=== PATIENT | male | born 1955 | race Caucasian/White ===

== ENCOUNTER → 2019-08-23 | Outpatient (CLI) | payer MEDICARE, OTHER ==
[~2019-08-23] MED LIST: ASPI-624 PO; CEPH500C PO; HAWT565C PO; HYDR-3454 PO; LORA10TA7 PO; MULT9LIQ6 PO; MUPI22OI TP; OMEG1CAP51 PO
--- NOTE | 2019-08-23 11:22 | Diagnostic Imaging Report ---
PROCEDURE: CT sinuses without contrast TECHNIQUE: Multiple contiguous axial images were obtained through the sinuses without the use of intravenous contrast. Coronal and sagittal reformations were then performed. Auto Exposure Controls were utilized during the CT exam to meet ALARA standards for radiation dose reduction. DATE: August 23, 2019. INDICATION: 64-year-old male, history of nasal polyps. Worsening symptoms per patient. COMPARISON: None available. FINDINGS: There is dependent opacification in the right frontal sinus with areas of bubbly internal lucency. There is complete opacification of the left frontal sinus and essentially complete opacification of the ethmoidal air cells bilaterally. There is very near complete opacification of the bilateral sphenoid sinuses. There is prominent right maxillary sinus mucosal thickening. There is complete opacification of the left maxillary sinus. There are areas of high internal attenuation within the central aspect of the left maxillary sinus as well as dependently. There is complete opacification of both ostiomeatal units. There is complete opacification of both sphenoethmoidal recesses. There is no aggressive bone destruction. The bony nasal septum does deviate to the left of midline. The middle ears and mastoid air cells are well aerated bilaterally. IMPRESSION: 1. Nonspecific extensive opacification within the paranasal sinuses with dependent areas of opacification in the right frontal sinus as well as bubbly areas of internal lucency. This does raise concern for acute sinusitis. Recommend correlation clinically. 2. There are areas of high attenuation in the left maxillary sinus. This is not specific although fungal etiology would be considered. 3. No aggressive bone destruction. Dictated by: Dictated on workstation # [id number]
== END ==
LOC: RAD FS 10:06
PROVIDERS: ATTEND Otolaryngology Otolaryngology/Facial Plastic Surgery
DX: J33.9 Nasal polyp, unspecified (principal)
CPT/HCPCS: 70486

== ENCOUNTER 2020-06-13 05:34 | Outpatient (RCR) | payer MEDICARE, OTHER ==
[~2020-06-13] VITALS: Ht 182.9 cm; Wt 84.9 kg
[2020-06-13 09:43] VITALS: BP 156/86
[2020-06-13 10:12] LABS: BASOPHILS % (AUTO) 0 % (0-10); EOSINOPHILS % (AUTO) 0 % (0-10); HEMATOCRIT 45 % (40-54); HEMOGLOBIN 15.2 g/dL (13.3-17.7); LYMPHOCYTES # (AUTO) 1.2 10^3/uL (1.0-4.0); LYMPHOCYTES % (AUTO) 12 % (12-44); MEAN CORPUSCULAR HEMOGLOBIN 31 pg (25-34); MEAN CORPUSCULAR HGB CONC 34 g/dL (32-36); MEAN CORPUSCULAR VOLUME 93 fL (80-99); MEAN PLATELET VOLUME 11.3 fL (9.0-12.2); MONOCYTES # (AUTO) 0.7 10^3/uL (0.0-1.0); MONOCYTES % (AUTO) 7 % (0-12); NEUTROPHILS # (AUTO) 7.9 10^3/uL (1.8-7.8); NEUTROPHILS % (AUTO) 80 % (42-75); PLATELET COUNT 182 10^3/uL (130-400); WHITE BLOOD COUNT 9.9 10^3/uL (4.3-11.0)
[2020-06-13 10:26] LABS: CHLORIDE 102 MMOL/L (98-107); POTASSIUM 3.9 MMOL/L (3.6-5.0); SODIUM 137 MMOL/L (135-145)
[2020-06-13 10:27] LABS: CALCIUM 9.4 MG/DL (8.5-10.1)
[2020-06-13 10:28] LABS: GLUCOSE 91 MG/DL (70-105)
[2020-06-13 10:29] LABS: CARBON DIOXIDE 27 MMOL/L (21-32)
[2020-06-13 10:32] LABS: CREATININE SERUM 1.02 MG/DL (0.60-1.30); GFR ESTIMATED > 60
[2020-06-13 10:33] LABS: BUN/CREATININE RATIO 25
[2020-06-13] MEDS ORDERED: ASPI-999 PO (11:18)
[2020-06-13] MEDS ORDERED: LOSA100T57 PO (11:49)
[2020-06-13] MEDS ORDERED: ATOR10TA PO (11:49)
[2020-06-13] MEDS ORDERED: ZINC50TA11 PO (11:49)
[2020-06-13] MEDS ORDERED: HYDR25TA4 PO (11:49)
[2020-06-13] MEDS ORDERED: FLUT9.9S NSEACH (11:49)
[2020-06-13] MEDS ORDERED: CHOL10002 PO (11:49)
[2020-06-13] MEDS ORDERED: MTP25TSR PO (11:49)
[2020-06-13] MEDS ORDERED: LEVO5TAB28 PO (11:49)
== END 2020-06-13 11:52 | disposition home or self-care (01) ==
LOC: PREOP 05:34
PROVIDERS: ATTEND Otolaryngology Otolaryngology/Facial Plastic Surgery
DX: Z01.818 Encounter for other preprocedural examination (principal); J32.9 Chronic sinusitis, unspecified; J34.3 Hypertrophy of nasal turbinates; J33.9 Nasal polyp, unspecified; Z20.822 Contact with and (suspected) exposure to COVID-19
CPT/HCPCS: 80048; 85025; 87081; 93005; U0002; 36415; 87635

== ENCOUNTER 2020-06-15 07:33 | Day surgery (SDC) | payer MEDICARE, OTHER ==
[~2020-06-15] VITALS: Ht 182.9 cm; Wt 84.9 kg
[2020-06-15] VITALS (14 sets, daily range): BP systolic 145–182; BP diastolic 87–115
[~2020-06-15 07:33] MED LIST changes: +ASPI-999 PO; +ATOR10TA PO; +CHOL-34 PO; +FLUT9.9S NSEACH; +HYDR25TA4 PO; +LEVO5TAB28 PO; +LOSA100T57 PO; +MTP25TSR PO; +ZINC50TA11 PO
[2020-06-15] MEDS ORDERED: LACTATED RINGERS 1,000 ML IV PRN (07:45)
[2020-06-15] MEDS ORDERED: HYDROCORTISONE 100 MG/2 ML (Solu-CORTEF) VIAL IV ONE ×2 (07:45→08:30)
[2020-06-15] MEDS ORDERED: AMPICILLIN/SULBACTAM INJECTION 1.5 GM in NS (IVPB) 100 ML IV ONE ×2 (07:45→08:30)
[2020-06-15] MEDS: LACTATED RINGERS 1,000 ML IV PRN ×2 (07:52→09:27)
[2020-06-15] MEDS ORDERED: BSS 15 ML ONE (07:53)
[2020-06-15] MEDS ORDERED: PHENYLEPHRINE 0.5% NASAL SPR (NEO-SYNEPHRINE) REG ONE (07:53)
[2020-06-15] MEDS ORDERED: COCAINE HCL 4% 2 ML SYR ONE (07:53)
[2020-06-15] MEDS ORDERED: LIDOCAINE/EPI 1%-1:200,000 (XYLOCAINE) 10 ML VIAL ONE (07:54)
[2020-06-15] MEDS ORDERED: HYDROCORTISONE 100 MG/2 ML (Solu-CORTEF) VIAL ONE (07:55)
--- NOTE | 2020-06-15 07:57 | Progress Note-Pre Operative ---
Pre-Operative Progress Note H&P Reviewed The H&P was reviewed, patient examined and no changes noted. Date Seen by Provider: Jun 15, 2020 Time Seen by Provider: 07:45 Date H&P Reviewed: Jun 15, 2020 Time H&P Reviewed: 07:45 Pre-Operative Diagnosis: Bilat Chronic Sinusitis, Deviated SEptum, Bilat Hyepr of Inf Turbs REGULO BIRMINGHAM MD Jun 15, 2020 07:57
[2020-06-15] MEDS ORDERED: proPOfol 200 MG/20 ML (DIPRIVAN) VIAL IV ONE (08:02)
[2020-06-15] MEDS ORDERED: LIDOCAINE PF 2% 5 ML (XYLOCAINE) VIAL ONE (08:02)
[2020-06-15] MEDS ORDERED: ONDANSETRON 4 MG/2 ML (SDV) Z0FRAN ONE (08:02)
[2020-06-15] MEDS ORDERED: ROCURONIUM 10 MG/ML 5 ML SYRINGE IV ONE (08:02)
[2020-06-15] MEDS ORDERED: MIDAZOLAM 2 MG/2 ML (VERSED) VIAL ONE (08:02)
[2020-06-15] MEDS ORDERED: fentaNYL INJECTION 100 MCG/2 ML AMP ONE (08:02)
[2020-06-15] MEDS ORDERED: NEOSTIGMINE 3 MG/3 ML VIAL ONE (08:05)
[2020-06-15] MEDS ORDERED: SEVOFLURANE (ULTANE) 15 ML INHAL SOLN ONE ×5 (08:05→10:01)
[2020-06-15] MEDS ORDERED: GLYCOPYRROLATE 0.2 MG/ML (ROBINUL) 2 ML VIAL ONE ×2 (08:05→09:07)
[2020-06-15] MEDS ORDERED: D5 1/2 NS W/KCL 20 MEQ/L 1,000 ML IV SCH (10:30)
[2020-06-15] MEDS ORDERED: HYDROcodone/APAP 5 MG/325 MG (LORTAB) TAB PO PRN (10:30)
[2020-06-15] MEDS ORDERED: ACETAMINOPHEN 325 MG TABLET PO PRN (10:30)
[2020-06-15] MEDS ORDERED: predniSONE 20 MG TAB PO ONE (10:30)
[2020-06-15] MEDS ORDERED: PROMETHAZINE INJ 25 MG/ML (PHENERGAN) AMP IVP PRN (10:30)
--- NOTE | 2020-06-15 10:30 | Progress Note-Post Operative ---
Post-Operative Progess Note Surgeon (s)/Impregnation Operator (s) Surgeon REGULO BIRMINGHAM MD Impregnation Operator n/a Pre-Operative Diagnosis Bilat Chronic Sinusitis, Deviated SEptum, Bilat Hyepr of Inf Turbs Post-Operative Diagnosis same Post-Op Procedure Note Date of Procedure: Jun 15, 2020 Name of Procedure Performed: Bilat ESS. Nasal Septoplasty, Bilat REd of Inf Turbs Description & Findings Description and Findings: n/a Anesthesia Type get Estimated Blood Loss minimal Packing none. Specimen(s) collected/removed bilat chronic Sinsustis REGULO BIRMINGHAM MD Jun 15, 2020 10:30
[2020-06-15] MEDS ORDERED: ONDANSETRON 4 MG/2 ML (SDV) Z0FRAN IVP PRN (10:45)
[2020-06-15] MEDS ORDERED: HYDROmorphone 2 MG/ML VIAL (DILAUDID) IV ONE (10:45)
[2020-06-15] MEDS ORDERED: LABETALOL HCL 20 MG/4 ML VIAL ONE (11:00)
[2020-06-15] MEDS ORDERED: LABETALOL HCL 100 MG/20 ML VIAL IV ONE (11:15)
[2020-06-15] MEDS ORDERED: HYDROmorphone 2 MG/ML VIAL (DILAUDID) ONE (11:27)
[2020-06-15] MEDS ORDERED: predniSONE 20 MG TAB ONE (11:57)
[2020-06-15] MEDS ORDERED: ACHD5005 PO (12:52)
[2020-06-15] MEDS ORDERED: AMOX-355 PO (12:52)
[2020-06-15] MEDS ORDERED: PRD20T PO (12:55)
[2020-06-15] MEDS ORDERED: HYDROcodone/APAP 5 MG/325 MG (LORTAB) TAB PO ONE (15:00)
--- NOTE | 2020-06-19 15:00 | Anesthesia-General Post-Op ---
General Significant Intra-Op Events Notes Post op completed 06/15 1130 Patient Condition Mental Status/LOC: Same as Preop Cardiovascular: Satisfactory Nausea/Vomiting: Absent Respiratory: Satisfactory Pain: Controlled Complications: Absent Post Op Complications Complications None Follow Up Care/Instructions Patient Instructions None needed. Anesthesia/Patient Condition Patient Condition Patient is doing well, no complaints, stable vital signs, no apparent adverse anesthesia problems. No complications reported per nursing. D/C home per [facility] [place] Criteria: Yes TRACI SOTO CRNA Jun 19, 2020 15:00
== END 2020-06-15 15:00 | disposition home or self-care (01) ==
LOC: SDC 07:33
PROVIDERS: ATTEND Otolaryngology Otolaryngology/Facial Plastic Surgery
DX: J32.9 Chronic sinusitis, unspecified (principal); J33.9 Nasal polyp, unspecified; J34.2 Deviated nasal septum; J34.3 Hypertrophy of nasal turbinates; R09.81 Nasal congestion; I10 Essential (primary) hypertension; Z79.899 Other long term (current) drug therapy
CPT/HCPCS: 87081; 88304; 88305; 88311

== ENCOUNTER 2022-07-18 05:29 | Outpatient (CLI) | payer MEDICARE, OTHER ==
[~2022-07-18] VITALS: Ht 182.9 cm; Wt 79.5 kg
[~2022-07-18 05:29] MED LIST changes: +ACHD5005 PO; +AMOX-355 PO; +PRD20T PO
[2022-07-18] MEDS ORDERED: FLUT9.9S NS (15:51)
[2022-07-18] MEDS ORDERED: ASPI-999 PO (15:51)
== END 2022-07-18 16:19 | disposition home or self-care (01) ==
LOC: PREOP 05:29
PROVIDERS: ATTEND Otolaryngology Otolaryngology/Facial Plastic Surgery
DX: Z01.818 Encounter for other preprocedural examination (principal)

== ENCOUNTER 2022-07-25 07:20 | Day surgery (SDC) | payer MEDICARE, OTHER ==
[~2022-07-25] VITALS: Ht 182.9 cm; Wt 79.5 kg
[2022-07-25] VITALS (9 sets, daily range): BP systolic 127–169; BP diastolic 69–99
[~2022-07-25 07:20] MED LIST changes: +FLUT9.9S NS
[2022-07-25] MEDS ORDERED: LACTATED RINGERS 1,000 ML IV PRN (07:30)
[2022-07-25] MEDS ORDERED: MIDAZOLAM 2 MG/2 ML (VERSED) VIAL ONE (07:42)
[2022-07-25] MEDS ORDERED: SEVOFLURANE (ULTANE) 15 ML INHAL SOLN ONE ×2 (07:42→09:44)
[2022-07-25] MEDS ORDERED: ONDANSETRON 4 MG/2 ML (SDV) Z0FRAN ONE (07:42)
[2022-07-25] MEDS ORDERED: fentaNYL INJ 100 MCG/2 ML AMP ONE (07:42)
[2022-07-25] MEDS ORDERED: LIDOCAINE PF 2% 5 ML (XYLOCAINE) VIAL ONE (07:42)
[2022-07-25] MEDS ORDERED: proPOfol 200 MG/20 ML (DIPRIVAN) VIAL IV ONE (07:42)
[2022-07-25] MEDS ORDERED: MUPIROCIN 2% OINT 22 GM (BACTROBAN) TUBE ONE (07:43)
[2022-07-25] MEDS ORDERED: LIDOCAINE/EPI 1%-1:100,000 (XYLOCAINE) 20ML ONE (07:43)
[2022-07-25 08:15] LABS: BASOPHILS # (AUTO) 0.1 10^3/uL (0.0-0.1); BASOPHILS % (AUTO) 1 % (0-10); EOSINOPHILS # (AUTO) 0.3 10^3/uL (0.0-0.3); EOSINOPHILS % (AUTO) 6 % (0-10); HEMATOCRIT 44 % (40-54); HEMOGLOBIN 15.6 g/dL (13.3-17.7); LYMPHOCYTES # (AUTO) 1.2 10^3/uL (1.0-4.0); LYMPHOCYTES % (AUTO) 27 % (12-44); MEAN CORPUSCULAR HEMOGLOBIN 33 pg (25-34); MEAN CORPUSCULAR HGB CONC 35 g/dL (32-36); MEAN CORPUSCULAR VOLUME 92 fL (80-99); MONOCYTES # (AUTO) 0.6 10^3/uL (0.0-1.0); MONOCYTES % (AUTO) 12 % (0-12); NEUTROPHILS # (AUTO) 2.4 10^3/uL (1.8-7.8); NEUTROPHILS % (AUTO) 53 % (42-75); PLATELET COUNT 174 10^3/uL (130-400); WHITE BLOOD COUNT 4.4 10^3/uL (4.3-11.0)
[2022-07-25 08:29] LABS: CALCIUM 9.5 MG/DL (8.5-10.1); CREATININE SERUM 0.99 MG/DL (0.60-1.30); POTASSIUM 3.4 MMOL/L (3.6-5.0)
[2022-07-25] MEDS ORDERED: LIDOCAINE/EPI 1%-1:100,000 (XYLOCAINE) 20ML INJ ONE (09:37)
[2022-07-25] MEDS ORDERED: MUPIROCIN 2% OINT 22 GM (BACTROBAN) TUBE TOP ONE (09:38)
--- NOTE | 2022-07-25 09:46 | Progress Note-Pre Operative ---
Pre-Operative Progress Note Date of Available H&P: Jul 25, 2022 Date H&P Reviewed: Jul 25, 2022 Time H&P Reviewed: 09:00 History & Physical: H&P Reviewed, Patient Examed, No changes noted Changes from last HP none Pre-Operative Diagnosis: Melanoma In situ right s REGULO Montoya MD Jul 25, 2022 09:46
--- NOTE | 2022-07-25 09:47 | Progress Note-Post Operative ---
Post-Operative Progess Note Surgeon (s)/Industrial Designer (s) Surgeon REGULO BIRMINGHAM MD Industrial Designer n/a Pre-Operative Diagnosis Melanoma In situ right s calp Post-Operative Diagnosis same Post-Op Procedure Note Date of Procedure: Jul 25, 2022 Name of Procedure Performed: Wide eXcsion of Right Scalp Lesion with INtermediate repair Description & Findings Description and Findings: n/a Anesthesia Type lma Estimated Blood Loss minimal Packing none. Specimen(s) collected/removed right scalp lesion tagged superiorly to pathology REGULO BIRMINGHAM MD Jul 25, 2022 09:47
[2022-07-25] MEDS ORDERED: HYDROcodone/APAP 5 MG/325 MG (LORTAB) TAB PO PRN (10:00)
[2022-07-25] MEDS ORDERED: ACETAMINOPHEN 325 MG TABLET PO PRN (10:00)
[2022-07-25] MEDS ORDERED: ONDANSETRON 4 MG/2 ML (SDV) Z0FRAN IVP PRN (10:00)
[2022-07-25] MEDS ORDERED: morphine INJ 10 MG/ML 1ML (SYR OR VIAL) IVP ONE (10:00)
[2022-07-25] MEDS ORDERED: ACHD5005 PO (10:47)
[2022-07-25] MEDS ORDERED: CEPH500T PO (10:47)
--- NOTE | 2022-07-25 12:30 | Anesthesia-General Post-Op ---
General Patient Condition Mental Status/LOC: Same as Preop Cardiovascular: Satisfactory Nausea/Vomiting: Absent Respiratory: Satisfactory Pain: Controlled Complications: Absent Post Op Complications Complications None Follow Up Care/Instructions Patient Instructions None needed. Anesthesia/Patient Condition Patient Condition Patient was doing well after the procedure with no complaints, stable vital signs, no apparent adverse anesthesia problems. No complications reported per nursing. RODY GARCIA DO Jul 25, 2022 12:30
== END 2022-07-25 11:25 | disposition home or self-care (01) ==
LOC: SDC 07:20
PROVIDERS: ATTEND Otolaryngology Otolaryngology/Facial Plastic Surgery
DX: D03.4 Melanoma in situ of scalp and neck (principal)
CPT/HCPCS: 36415; 80048; 85025; 87081; 88305; 93005